=== PATIENT | male | born 1955 | race Caucasian/White ===

== ENCOUNTER 2017-01-25 07:45 | Day surgery (SDC) | payer OTHER ==
[~2017-01-25] VITALS: Ht 167.6 cm; Wt 91.7 kg
[2017-01-25 08:26] VITALS: Ht 167.6 cm; Wt 91.7 kg
[2017-01-25] MEDS ORDERED: januvia PO (08:36)
[2017-01-25] MEDS ORDERED: stool softener PO (08:36)
[2017-01-25] MEDS ORDERED: glipizide PO (08:36)
[2017-01-25] MEDS ORDERED: paroxetine PO (08:36)
[2017-01-25] MEDS ORDERED: simvastatin PO (08:36)
[2017-01-25] MEDS ORDERED: nexium PO (08:36)
[2017-01-25] MEDS ORDERED: gabapentin PO (08:36)
[2017-01-25 09:45] VITALS: BP 136/86; PULSE 71; RESP 18
[2017-01-25] MEDS ORDERED: FENTAnyl 50 MCG/ML VIAL ONE (09:51)
[2017-01-25] MEDS ORDERED: MIDAZOLAM 1 MG/ML 2 ML INJ ONE ×2 (09:51)
--- NOTE | 2017-01-25 10:34 | GILP ---
DATE OF PROCEDURE: 01/25/2017 PROCEDURE: Colonoscopy. PREOPERATIVE DIAGNOSIS: The patient presenting with history of colon cancer resection. Procedure a t this time performed to rule out recurrence of colon cancer. POSTOPERATIVE DIAGNOSES: 1. Status post left colon resection, probably including the transverse colon anastomosis noted. 2. A 3 mm flat polyp was noted at the proximal descending colon. 3. There is evidence of a small flat polyp noted on the ileocecal valve. 4. Diverticulosis noted. 5. Hemorrhoids noted. DESCRIPTION OF PROCEDURE: After the informed written consent was obtained, the patient was asked to lie on the left lateral side; 3 mg Versed and 75 mcg of fentanyl was given as intravenous anesthesi a. When the patient became somnolent, the Olympus video colonoscope was introduced into the rectum, and scope was advanced all the way to the cecum. There seems to be evidence of a colon resection at th e proximal descending colon. It is difficult to say, but no tumor noted in this area. A 3 mm flat polyp was noted in the proximal descending colon. There is evidence of a flat polyp noted in the ileocecal valve. Biopsy was done. Diverticulosis was noted. Hemorrhoids were noted. The entire colon was examined up to the ileocecal valve. As mentioned, flat polyp was noted on the ileocecal valve which was biopsied. The rest of the colon appeared normal. Anastomosis appeared no rmal. On the way out, diverticulosis was noted. On the way out, minimal external hemorrhoids were noted, and the procedure was terminated. PLAN: Recommend wait for the pathology report. Dictated By: MARIO WRIGHT/SYDNEY Conf#: [id number] DID#: [id number] CC: Yenniefr Lane MD;*EndCC*
== END 2017-01-25 12:55 | disposition home or self-care (01) ==
LOC: GIL 07:45
PROVIDERS: ATTEND Internal Medicine Gastroenterology
DX: D12.4 Benign neoplasm of descending colon (principal); D12.0 Benign neoplasm of cecum; K57.90 Diverticulosis of intestine, part unspecified, without perforation or abscess without bleeding; K64.4 Residual hemorrhoidal skin tags; Z85.038 Personal history of other malignant neoplasm of large intestine; E11.9 Type 2 diabetes mellitus without complications
CPT/HCPCS: 45380; 82962; 88305; J2250; J3010; Z7610